=== PATIENT | female | born 1975 | race African-American/Black ===

== ENCOUNTER 2018-07-23 16:12 | Emergency (ER) | payer OTHER ==
[~2018-07-23] VITALS: Ht 157.5 cm; Wt 61.0 kg
[2018-07-23] MEDS ORDERED: IBUPROFEN 600MG TABLET PO ONE (18:45)
[2018-07-23 19:45] VITALS: BP 122/82
== END 2018-07-23 22:00 | disposition home or self-care (01) ==
LOC: ER 21:20
DX: M25.512 Pain in left shoulder (principal); R53.1 Weakness
CPT/HCPCS: 73030; 81025; 99283; A4565